=== PATIENT | female | born 1985 | race Hispanic/Latino ===

== ENCOUNTER 2017-10-04 03:45 | Inpatient (IN) | payer BC ==
[2017-10-04 04:52] VITALS: BMI 22.4
[2017-10-04] MEDS ORDERED: Penicillin G Potassium 5 MU in Dextrose 5% In Water 50 ML IV ONE (04:57)
--- NOTE | 2017-10-04 05:00 | OBHP ---
Datetime: 10/04/2017 04:53 IP Adm Impression: Term, intrauterine ; Intact Membranes IP Admit Plan: Admit to unit; Initiate labor protocol Admit Comment, IP Provider: 31 yo female G1 Term Early labor/Requesting an Epidural + GBS culture Will admit for Labor and Delivery Start Antibiotics for GBS + Pelvic Type - PN: Adequate Extremities - PN: Normal Abdomen - PN: Normal Back - PN: Normal Breast - PN: Normal Lungs - PN: Normal Heart - PN: Normal Thyroid - PN: Normal Neurologic - PN: Normal HEENT - PN: Normal General - PN: Normal Presentation-Admit: Vertex FHR - Baseline A Provider: 120 Membranes, Provider: Intact Gestation - Est Wks by US: 38.3 EGA AdmitDate IP: 38.3 Vital Signs Provider: Reviewed; Within Normal Limits IP Chief Complaint: Uterine contractions NICHD Variability Prov Fetus A: Moderate 6-25bpm NICHD Accel Fetus A IP Provider: 10X10 FHR Category Provider Fetus A: Category I NICHD Decel Fetus A IP Provider: None Dilatation, Provider: 4 Effacement, Provider: 80 Station, Provider: -2 Genitourinary Exam: Normal DTRs - PN: Normal
[2017-10-04 05:02] LABS: BASO # 0.1 K/uL (0.0-0.2); BASO % 0.5 % (0.0-2.0); EOS # 0.1 K/uL (0.0-0.7); EOS % 0.3 % (0.0-4.0); HEMOGLOBIN 12.6 g/dL (11.0-16.0); LYMPH # 2.4 K/uL (1.0-4.3); LYMPH % 15.6 % (20.0-40.0); MEAN CORPUSCULAR HEMOGLOBIN 28.7 pg (27.0-31.0); MEAN CORPUSCULAR HGB CONC 33.8 g/dL (33.0-37.0); MEAN PLATELET VOLUME 8.4 fL (7.2-11.7); MONO # 0.9 K/uL (0.0-0.8); MONO % 5.9 % (0.0-10.0); NEUT # 12.1 K/uL (1.8-7.0); NEUT % 77.7 % (50.0-75.0); RBC 4.38 Mil/uL (3.80-5.20); RED CELL DISTRIBUTION WIDTH 14.6 % (11.5-14.5); WHITE BLOOD COUNT 15.6 K/uL (4.8-10.8)
[2017-10-04 05:12] LABS: ALB/GLOB RATIO 1.2 (1.0-2.1); ALBUMIN 3.6 g/dL (3.5-5.0); ALT/SGPT 27 U/L (9-52); AST/SGOT 26 U/L (14-36); BLOOD UREA NITROGEN 8 mg/dL (7-17); CALCIUM 9.1 mg/dl (8.6-10.4); GFR AFRICAN-AMERICAN > 60; GFR NON-AFRICAN AMERICAN > 60
--- NOTE | 2017-10-04 05:13 | OBADHP ---
Datetime: 10/04/2017 05:00 Admit Comment, IP Provider: 31 yo female G1 Term Early labor/Requesting an Epidural + GBS culture Admit for Labor and Delivery Initiate GBS prophylaxis with PCN Pelvic Type - PN: Adequate Extremities - PN: Normal Abdomen - PN: Normal Back - PN: Normal Breast - PN: Normal Lungs - PN: Normal Heart - PN: Normal Thyroid - PN: Normal Neurologic - PN: Normal HEENT - PN: Normal General - PN: Normal Presentation-Admit: Vertex FHR - Baseline A Provider: 130 Membranes, Provider: Intact Contraction Comments Provider: 3-4 Gestation - Est Wks by US: 38.3 Vital Signs Provider: Reviewed; Within Normal Limits IP Chief Complaint: Uterine contractions NICHD Variability Prov Fetus A: Moderate 6-25bpm NICHD Accel Fetus A IP Provider: 10X10 NICHD Decel Fetus A IP Provider: None Dilatation, Provider: 4 Effacement, Provider: 100 Genitourinary Exam: Normal DTRs - PN: Normal EGA AdmitDate IP: 38.3 IP Adm Impression: Term, intrauterine ; Intact Membranes IP Admit Plan: Admit to unit; Initiate labor protocol Datetime: 10/04/2017 04:53 FHR Category Provider Fetus A: Category I Station, Provider: -2
[2017-10-04] MEDS ORDERED: Bupivacaine HCl 0.25% PF (30 ml) Inj ONE (05:26)
[2017-10-04] MEDS ORDERED: Bupivacaine HCl/FentaNYL Cit 100 ML EPI ONE (05:26)
[2017-10-04] MEDS ORDERED: Penicillin G 5 Million Unit Vial IVPB ONE (06:17)
[2017-10-04 06:18] LABS: URINE BILIRUBIN SMALL (NEGATIVE); URINE CLARITY Hazy (Clear); URINE GLUCOSE (UA) NEGATIVE (Normal)
[2017-10-04 06:19] LABS: URINE BLOOD LARGE (NEGATIVE); URINE LEUKOCYTE ESTERASE NEGATIVE Leu/uL (Negative); URINE PROTEIN 100 mg/dL (NEGATIVE); URINE UROBILINOGEN 0.2 mg/dL (0.2-1.0)
--- NOTE | 2017-10-04 08:26 | OBPN ---
Datetime: 10/04/2017 08:23 IP Progress Impression: Normal progression of labor; Non-reassuring heart rate IP Progress Plan: Continue present management; Anticipate Vaginal Delivery Membranes, Provider: Ruptured Contraction Comments Provider: q3 FHR - Baseline A Provider: 125 Gestation - Est Wks by US: 38.3 Presentation-Admit: Vertex IP Progress Note Comment: pt seen adn examien, intermitten variable decerls s/p epdiural vss ve see aobve a/p @ 38+ wks in active labor cat ii oxygn, left laterail IVH close observation Vital Signs Provider: Reviewed FHR Category Provider Fetus A: Category II Dilatation, Provider: 9 Effacement, Provider: 100 Station, Provider: 0 NICHD Decel Fetus A IP Provider: Variable Datetime: 10/04/2017 05:00 NICHD Accel Fetus A IP Provider: 10X10 NICHD Variability Prov Fetus A: Moderate 6-25bpm
--- NOTE | 2017-10-04 08:28 | OBDS ---
DELIVERY PERSONNEL Delivery Doctor: Paco Shaw MD Wage Conciliator: Felicitas Aleksandar RN MATERNAL INFORMATION Delivery Anesthesia: Epidural Placenta Cultured: No Maternal Complications: None Provider Comments: pt was fully dilated and pushing. verbal consent for right mediolateral epistiomy and vacum deivery given by patient given Cat II tracing. Atruamtic, deliver yof head, nuchal cord x 1 reduced, vacumn removed. atruamtc, spontaneous delivery of anteiror followed by posterior shoulder followed by delivery of the body. both oral and nasal passage of the baby were bulb suctioned. umbil calin cord was clamped and cut. 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 cord blood and cord gases collected adn se nt x 2. right mediolateral epistiomy repaired with 2-0 and 3-0 chormic. spotneoau deliveyr of intac t placenta with membrnes. fundus firm, good hemostaiss, no comlications live female apars 9,9 weigh tof 6lb 9 ounces ebl 200ml LABOR SUMMARY EDC: 10/15/2017 00:00 No. Babies in Womb: 1 Attempted: No Labor Anesthesia: Epidural LABOR INFORMATION Reason for Induction: Not Applicable Onset of Labor: 10/04/2017 01:00 Complete Dilatation: 10/04/2017 07:40 Oxytocin: N/A Group B Beta Strep: Positive Steroids Given: None Reason Steroids Not Administered: Not Applicable MEMBRANES Membranes Rupture Method: Spontaneous Rupture of Membranes: 10/04/2017 05:30 Length of Rupture (hrs): 2.52 Amniotic Fluid Color: Clear Amniotic Fluid Amount: Scant Amniotic Fluid Odor: Normal STAGES OF LABOR Stage 1 hrs: 6 Stage 1 min: 40 Stage 2 hrs: 0 Stage 2 min: 21 Stage 3 hrs: 0 Stage 3 min: 13 Total Time in Labor hrs: 7 Total Time in Labor min: 14 VAGINAL DELIVERY Episiotomy: Right Mediolateral Laceration Extension: N/A Laceration Type: None Initial Vag Sponge Count: 10 Final Vag Sponge Count: 10 Initial Vag Sharps Count: 3 Final Vag Sharps Count: 3 Sponge Count Correct: Yes Sharps Count Correct: Yes BABY A INFORMATION Infant Delivery Date/Time: 10/04/2017 08:01 Method of Delivery: Vaginal Born in Route : No : N/A Forceps: N/A Vacuum Extraction: Successful Shoulder Dystocia : No SHOULDER DYSTOCIA BABY A Infant Delivery Date/Time: 10/04/2017 08:01 PRESENTATION/POSITION BABY A Presentation: Cephalic Cephalic Presentation: Vertex Breech Presentation: N/A PLACENTA INFORMATION BABY A Placenta Delivery Time : 10/04/2017 08:14 Placenta Method of Delivery: Spontaneous Placenta Status: Delivered INFANT INFORMATION BABY A Gestational Age at Delivery: 38.3 Gestational Status: Term Infant Outcome : Liveborn Condition : Stable Sex: Female IDENTIFICATION/MEDS BABY A ID Band Number: [id number] ID Band Location: Left Leg; Left Arm Sensor Applied: Yes Sensor Number: [id number] Sensor Location : Right Leg WEIGHT/LENGTH BABY A Birthweight (gms): 2965 Weight (lb): 6 Infant Weight (oz): 9 Infant Length Inches: 18.25 Infant Length cms: 46.4 CORD INFORMATION BABY A No. Cord Vessels: 3
[2017-10-04] MEDS ORDERED: Oxycodone/Acetaminophen 5/325 mg Tab PO PRN ×2 (08:33)
[2017-10-04] MEDS: Multiple Vitamins Tab PO SCH (10:49)
[2017-10-05 08:32] LABS: BASO # 0.1 K/uL (0.0-0.2); BASO % 0.4 % (0.0-2.0); EOS % 0.1 % (0.0-4.0); HEMOGLOBIN 10.8 g/dL (11.0-16.0); LYMPH # 2.1 K/uL (1.0-4.3); LYMPH % 16.5 % (20.0-40.0); MEAN CELL VOLUME 86.2 fL (81.0-99.0); MEAN CORPUSCULAR HEMOGLOBIN 28.1 pg (27.0-31.0); MEAN CORPUSCULAR HGB CONC 32.6 g/dL (33.0-37.0); MONO # 0.7 K/uL (0.0-0.8); MONO % 5.4 % (0.0-10.0); NEUT % 77.6 % (50.0-75.0); RBC 3.85 Mil/uL (3.80-5.20); RED CELL DISTRIBUTION WIDTH 15.1 % (11.5-14.5); WHITE BLOOD COUNT 12.9 K/uL (4.8-10.8)
[2017-10-05] MEDS: Multiple Vitamins Tab PO SCH (09:40)
--- NOTE | 2017-10-05 10:13 | OBPPN ---
Datetime: 10/05/2017 10:09 PP Pain Prov: Within normal limits PP Nausea Prov: Denies PP Flatus Prov: Yes PP BM Prov: No PP Breasts Prov: Normal PP Heart Prov: Normal PP Lungs Prov: Normal PP Abdomen/Uterus Prov: Normal PP Lochia Prov: Normal PP Vulva/Perineum Prov: Normal PP CVA Tenderness Prov: Normal PP Extremities Prov: Normal PP C/S Incision Prov: Not Applicable PP Progress Prov: Normal PP Impression Prov: Normal progression PP Plan Prov: Continue present management PP Progress Note Prov: pt seen and examiend and reports pain contorlled with medication. pt dnie adamson y fever, chills, nasue, vomiting, cp, sob. pt amublating, voiding, passigfn flatus. bottle feedng adn denluis manuel sanghulam feelings of sadness or depression. VSS PE see above a/P s/p PPD #1 pain manamgnet out of bed, ambulation with asisstance regular diet am labs enocurage breast feeding Vital Signs Provider PP: Reviewed; Within Normal Limits
--- NOTE | 2017-10-06 04:31 | OBPPN ---
Datetime: 10/06/2017 04:30 PP Pain Prov: Within normal limits PP Nausea Prov: Denies PP Flatus Prov: Yes PP BM Prov: No PP Breasts Prov: Normal PP Heart Prov: Normal PP Lungs Prov: Normal PP Abdomen/Uterus Prov: Normal PP Lochia Prov: Normal PP Vulva/Perineum Prov: Normal PP CVA Tenderness Prov: Normal PP Extremities Prov: Normal PP C/S Incision Prov: Not Applicable PP Progress Prov: Normal PP Impression Prov: Normal progression PP Plan Prov: Continue present management; Discharge PP Progress Note Prov: pt seen and examiend and reprots pain contorlled with medicaion. pt amabuitng , voiding, passing flatus, tolerating regular diet, bresat feeding VSS PE see above a/p s/p PPD #2 pain manamgnet encourage ambuation anticisd dc home today IP PP Procedures: None Vital Signs Provider PP: Reviewed; Within Normal Limits
--- NOTE | 2017-10-06 04:34 | OBDCSUM ---
Datetime: 10/06/2017 04:31 Discharged to, Provider: Home Follow up at, Provider: Dr Shaw Disch Instr Activity: Normal activity Disch Instr Diet: Regular Discharge Instructions, Provider: Routine instructions given Discharge Diagnosis, Provider: Term Delivered Discharge Time: 10/06/2017 09:00 Follow up in weeks, Provider: 6 weeks Disch Referrals: None Contraception discussed, Prov: Yes Disch Activity Restrictions: No sexual activity; Nothing in vagina - [place], tampons, douche Contraception after Delivery: Not Planning to Use
[2017-10-06] MEDS: Multiple Vitamins Tab PO SCH (09:38)
[2017-10-06 09:46] VITALS: BP 86/58; PULSE 74; RESP 18; O2SAT 97
[2017-10-06 18:57] VITALS: TEMP 98
== END 2017-10-06 11:35 | disposition home or self-care (01) | DRG 775 ==
LOC: C.EROB 03:45 → C.4D 04:21 → UNDOADMIN 04:21 → C.4LDOR 04:21 → C.4D 05:11 → C.4LDOR 05:31 → C.4D 05:31 → C.4M 10:21
PROVIDERS: ADMIT Obstetrics & Gynecology; ATTEND Obstetrics & Gynecology
PROC: 10D07Z6 Extraction of Products of Conception, Vacuum, Via Natural or Artificial Opening (ICD-10-PCS; principal; 2017-10-04)
PROC: 0W8NXZZ Division of Female Perineum, External Approach (ICD-10-PCS; 2017-10-04)
DX: O69.81X0 Labor and delivery complicated by cord around neck, without compression, not applicable or unspecified (principal); O76 Abnormality in fetal heart rate and rhythm complicating labor and delivery; O99.824 Streptococcus B carrier state complicating childbirth; Z3A.38 38 weeks gestation of pregnancy; Z37.0 Single live birth